=== PATIENT | female | born 1960 | race Caucasian/White ===

== ENCOUNTER 2019-06-01 19:06 | Inpatient (IN) | payer OTHER ==
--- NOTE | 2019-06-01 19:57 | EDM.PDOC ---
ED HPI GENERAL MEDICAL PROBLEM - General Chief Complaint: Abdominal Pain Stated Complaint: INTESTINAL BLOCKAGE Time Seen by Provider: 06/01/19 19:50 Source of Information: Reports: Patient History Limitations: Reports: No Limitations - History of Present Illness INITIAL COMMENTS - FREE TEXT/NARRATIVE: pt arrived with a iv in place. She was found to have a possible sbo. She was given 1 liter of fluid in [place]. She had a urine specfic gravity of .048. Pt had a cat scan that showed a possible sbo. Pt was able to come by [email or web address] car and she was able to remain comfortable. She states her nausea at this point is not a problem. She did receive reglan in [place] for her nausea. Onset: Other (started in the last 2 days and was much worse today. ) Duration: Hour(s): Location: Reports: Abdomen, Other (pt has had a rny. ) Associated Symptoms: Reports: Nausea/Vomiting - Related Data Allergies Allergy/AdvReac Type Severity Reaction Status Date / Time apixaban [From Eliquis] Allergy Hives Verified 06/01/19 19:17 erythromycin base Allergy Cannot Verified 06/01/19 19:17 Remember latex Allergy Cannot Verified 06/01/19 19:17 Remember meperidine Allergy Cannot Verified 06/01/19 19:17 Remember Penicillins Allergy Cannot Verified 06/01/19 19:17 Remember shellfish derived Allergy Cannot Verified 06/01/19 19:17 Remember Sulfa (Sulfonamide Allergy Cannot Verified 06/01/19 19:17 Antibiotics) Remember Home Meds: Home Meds Acetaminophen [Tylenol Extra Strength] 500 mg PO Q6HR PRN 06/08/15 [History] Aspirin [Halfprin] 81 mg PO DAILY 06/08/15 [History] Atenolol 50 mg PO DAILY 06/08/15 [History] Cholecalciferol (Vitamin D3) [Vitamin D] 1,000 units PO BID 06/08/15 [History] Levothyroxine [Synthroid] 200 mg PO DAILY 06/08/15 [History] Loratadine [Claritin] 10 mg PO DAILY 06/08/15 [History] Multivitamin [Multi-Vitamin Daily] 1 tab PO DAILY 06/08/15 [History] Ranitidine [Zantac] 150 mg PO BEDTIME 06/08/15 [History] Simvastatin 20 mg PO DAILY 06/08/15 [History] Vitamin E 100 units PO DAILY 06/08/15 [History] metFORMIN [Glucophage] 500 mg PO BIDMEALS 06/08/15 [History] Venlafaxine [Effexor] 1 tab PO TID 06/01/19 [History] buPROPion [Wellbutrin] 2 tab PO DAILY 06/01/19 [History] Past Medical History Cardiovascular History: Reports: High Cholesterol, Hypertension Respiratory History: Reports: Sleep Apnea Musculoskeletal History: Reports: Osteoarthritis Psychiatric History: Reports: Depression Endocrine/Metabolic History: Reports: Diabetes, Type II, Other (See Below) Other Endocrine/Metabolic History: Thyroid Diesase - Infectious Disease History Infectious Disease History: Reports: Chicken Pox, Mumps - Past Surgical History HEENT Surgical History: Reports: Oral Surgery Cardiovascular Surgical History: Reports: Valve Replacement Musculoskeletal Surgical History: Reports: Knee Replacement Social & Family History - Tobacco Use Smoking Status *Q: Never Smoker ED ROS GENERAL - Review of Systems Review Of Systems: See Below Constitutional: Reports: No Symptoms HEENT: Reports: No Symptoms Respiratory: Reports: No Symptoms Cardiovascular: Reports: No Symptoms Endocrine: Reports: No Symptoms GI/Abdominal: Reports: Nausea, Vomiting, Other (pt alos noted that her urine was very nubia in color. ) : Reports: Other ( she had a specfic gravity of .048) Musculoskeletal: Reports: No Symptoms Skin: Reports: No Symptoms Neurological: Reports: No Symptoms ED EXAM, GI/ABD - Physical Exam Exam: See Below Text/Narrative:: pt arrived transfered from [facility]. She was found to have a partial small bowel obstruction and she was very dehydrated. She is not nauseated or vomiting at this point. She is not having alot of pain. Exam Limited By: No Limitations General Appearance: Alert, Anxious, Mild Distress, Other (pupils are equal and reactive. ) Ears: Normal TMs Nose: Normal Inspection Throat/Mouth: Normal Inspection Head: Atraumatic Neck: Normal Inspection Respiratory/Chest: No Respiratory Distress Cardiovascular: Regular Rate, Rhythm GI/Abdominal Exam: Soft (Female) Exam: Other (mild midabdoman tenderness. ) Rectal (Female) Exam: Deferred Back Exam: Normal Inspection Extremities: Normal Inspection Neurological: Alert, Oriented, Normal Cognition Course - Vital Signs Last Recorded V/S: Last Vital Signs Temp 36.7 C 11/24/19 19:25 Pulse 87 06/01/19 19:25 Resp 14 06/01/19 19:25 BP 132/79 06/01/19 19:25 Pulse Ox 98 06/01/19 19:25 - Orders/Labs/Meds Orders: Active Orders 24 hr Category Date Time Status Sodium Chloride 0.9% [Normal Saline] 1,000 ml Med 06/01/19 20:00 Active IV ASDIRECTED Medication Orders Sodium Chloride (Normal Saline) 1,000 mls @ 999 mls/hr IV ASDIRECTED FARHAD Last Admin: 06/01/19 19:59 Dose: 999 mls/hr Meds: Medications Generic Name Dose Route Start Last Admin Trade Name Freq PRN Reason Stop Dose Admin Sodium Chloride 1,000 mls @ 999 mls/hr 06/01/19 20:00 06/01/19 19:59 Normal Saline IV 999 mls/hr ASDIRECTED FARHAD Administration - Re-Assessments/Exams Free Text/Narrative Re-Assessment/Exam: 06/01/19 20:21 iv fluids were restarted. She will receive a liter of normal saline and a liter of lactated ringers. She will also receive a banna bag. Departure - Departure Time of Disposition: 20:22 Disposition: Admitted As Inpatient 66 Condition: Fair Clinical Impression: Dehydration, Small bowel obstruction - Discharge Information Referrals: PCP,None [Primary Care Provider] - Forms: ED Department Discharge Care Plan Goals: admit to Dr Luz. - My Orders Last 24 Hours: My Active Orders 06/01/19 20:00 Sodium Chloride 0.9% [Normal Saline] 1,000 ml IV ASDIRECTED - Assessment/Plan Last 24 Hours: My Active Orders 06/01/19 20:00 Sodium Chloride 0.9% [Normal Saline] 1,000 ml IV ASDIRECTED
[2019-06-01] MEDS ORDERED: Sodium Chloride 0.9% 1,000 ML IV SCH (20:00)
[2019-06-01] MEDS ORDERED: Ondansetron 4 MG/2 ML SDV IV PRN (20:34)
[2019-06-01] MEDS ORDERED: Metoclopramide 10 MG/2 ML SDV IVPUSH PRN (20:40)
[2019-06-01] MEDS ORDERED: Lactated Ringers 1,000 ML IV SCH (21:30)
[2019-06-01] MEDS ORDERED: MVI, Adult with Vitamin K 10 ML, Thiamine 200 MG, Chromium/Copper/Mang/Selen/Zn 1 ML in... IV SCH ×4 (22:30)
[2019-06-02] MEDS ORDERED: Dextrose 5%-Lactated Ringers 1,000 ML IV SCH ×2 (02:15→17:45)
[2019-06-02] MEDS ORDERED: Lidocaine 0.4%/D5W 2 GM/500 ML BAG IV SCH ×2 (08:00→12:30)
[2019-06-02] MEDS ORDERED: Lidocaine 2% 100 MG/5 ML Syringe IVPUSH SCH ×2 (08:00→12:30)
[2019-06-02] MEDS ORDERED: Ketamine 500 MG/5 ML MDV IV SCH ×2 (08:00→12:30)
--- NOTE | 2019-06-02 10:12 | HP ---
HISTORY OF PRESENT ILLNESS: Sary presents to the emergency room by private car from [facility] Emergency Room. She was found to have partial small bowel obstruction. She had Richie-en-Y gastric bypass surgery in 2014. Followup has been very minimal. She states her pain started on 05/27/2019. She did go to Urgent Care and then the pain did increase, so went to ER in [facility], on 06/01/2019. She reports pain on the pain scale of 1 to 10 as a 1 to 2/10. She is resting, has been n.p.o., and receiving IV fluids. REVIEW OF SYSTEMS: Remainder of review of systems negative for any pertinent positives and negatives. PHYSICAL EXAMINATION: GENERAL: Sary Hernandez is a 59-year-old female. She is alert and orientated. Color pale. VITAL SIGNS: TPR is 96.2, 80, 116, blood pressure 118/55. HEENT: Negative. NECK: Supple. HEART: Regular rate and rhythm. LUNGS: Clear. ABDOMEN: Generalized tenderness with the greatest pain in the left upper quadrant. EXTREMITIES: Without peripheral edema. NEUROLOGIC: Intact. PSYCHIATRIC: Mood and affect appropriate. ASSESSMENT: Partial small bowel obstruction. PLAN: Schedule and have consent signed for exploratory laparotomy with release of small bowel obstruction and possible small bowel resection with TAP block, general anesthesia, ketamine loading dose and drip, lidocaine loading dose and drip. Case to follow on 06/02/2019, Carlos Luz MD. N.p.o. Check folate, magnesium, phosphate, thiamine, vitamin B12, and vitamin D prior to surgical procedure. Remain n.p.o. We will evaluate. Orders to be written postoperatively. Amee Feng PA-C /[id number]
[2019-06-02] MEDS ORDERED: fentaNYL 250 MCG/5 ML SDV ONE ×2 (10:48→16:04)
[2019-06-02] MEDS ORDERED: Ondansetron 4 MG/2 ML SDV ONE (10:48)
[2019-06-02] MEDS ORDERED: Succinylcholine 200 MG/10 ML MDV ONE (10:48)
[2019-06-02] MEDS ORDERED: Dexamethasone 4 MG/ML SDV ONE (10:48)
[2019-06-02] MEDS ORDERED: Rocuronium 50 MG/5 ML Vial ONE (10:48)
[2019-06-02] MEDS ORDERED: Neostigmine Methylsulfate 1 MG/ML 5 ML Syringe ONE (10:48)
[2019-06-02] MEDS ORDERED: Glycopyrrolate 0.2 MG/ML 5 ML MDV ONE (10:48)
[2019-06-02] MEDS ORDERED: Propofol 200 MG/20 ML SDV ONE (10:48)
[2019-06-02] MEDS ORDERED: Ropivacaine 50 ML, dexAMETHasone 8 MG, EPINEPHrine 0.4 MG, Sodium Chloride 0.9% 27.6 ML NERVRT SCH ×4 (12:30)
[2019-06-02] MEDS ORDERED: Ketamine 50 MG in Sodium Chloride 0.9% 49.5 ML IV SCH (12:30)
[2019-06-02] MEDS ORDERED: Bupivacaine 0.5% 50 ML MDV ONE (13:30)
[2019-06-02] MEDS ORDERED: Lidocaine 1% with EPINEPHrine 1:100,000 50 ML MDV ONE (13:30)
[2019-06-02] MEDS: Meropenem 500 MG in Sodium Chloride 0.9% 50 ML IV ONE ×2 (15:10→17:23)
[2019-06-02] MEDS ORDERED: Meropenem 500 MG SDV ONE (15:54)
[2019-06-02] MEDS ORDERED: Sugammadex Sodium 200 MG/2 ML VIAL ONE (16:03)
[2019-06-02] MEDS ORDERED: diphenhydrAMINE 50 MG/ML SDV IVPUSH PRN ×2 (17:49)
[2019-06-02] MEDS ORDERED: hydrOXYzine HCl 100 MG/2 ML SDV IM PRN (17:49)
[2019-06-02] MEDS ORDERED: Ondansetron 4 MG/2 ML SDV IVPUSH PRN (17:49)
[2019-06-02] MEDS ORDERED: Metoclopramide 10 MG/2 ML SDV IVPUSH PRN (17:49)
[2019-06-02] MEDS ORDERED: HYDROmorphone 1 MG/ML Syringe IV PRN (17:49)
[2019-06-02] MEDS ORDERED: HYDROmorphone 0.5 MG/0.5 ML Syringe IVPUSH PRN (17:49)
[2019-06-02] MEDS ORDERED: Labetalol 20 MG/4 ML Syringe IVPUSH PRN (17:49)
[2019-06-02] MEDS ORDERED: diphenhydrAMINE 25 MG Cap PO PRN (17:50)
[2019-06-02] MEDS ORDERED: Pantoprazole 40 MG Vial IVPUSH SCH (18:30)
[2019-06-02] MEDS ORDERED: MVI, Adult with Vitamin K 10 ML, Thiamine 200 MG, Chromium/Copper/Mang/Selen/Zn 1 ML in... IV SCH ×4 (18:30)
[2019-06-02] MEDS ORDERED: Meropenem 500 MG in Sodium Chloride 0.9% 50 ML IV SCH (21:00)
[2019-06-02] MEDS: Acetaminophen 325 MG Tab PO SCH (21:44)
[2019-06-02] MEDS: Heparin Sodium 5,000 Units/ML Vial SUBCUT SCH (21:44)
[2019-06-03] MEDS: Acetaminophen 325 MG Tab PO SCH ×4 (04:20→21:54)
[2019-06-03] MEDS ORDERED: Iopamidol 612 MG/ML 50 ML SDV PO ONE (05:54)
--- NOTE | 2019-06-03 06:03 | CRLCR ---
Indication: Small-bowel released. Recheck. Technique: Two views of the abdomen were obtained. Comparison: None Findings: Contrast is identified within the small bowel. The stomach appears to be extremely small. No extraluminal contrast is identified. Impression: No leak identified. Dictated by Devorah Fong MD @ Jun 03 2019 6:01AM Signed by Dr. Devorah Fong @ Jun 03 2019 6:02AM
[2019-06-03] MEDS: Heparin Sodium 5,000 Units/ML Vial SUBCUT SCH ×2 (08:22→21:54)
[2019-06-03] MEDS: SCOPOLAMINE PATCH CHECK TOP SCH (08:23)
[2019-06-03] MEDS ORDERED: HYDROmorphone 2 MG Tab PO PRN (08:37)
[2019-06-03] MEDS ORDERED: Ondansetron 4 MG Tab.DIS PO PRN (08:38)
[2019-06-03] MEDS ORDERED: Levothyroxine 50 MCG Tab PO SCH (09:00)
--- NOTE | 2019-06-03 10:13 | PN ---
DATE OF SERVICE: 06/03/2019 SUBJECTIVE: Sary is postoperative day 1. States her pain is controlled. Her Edge was removed earlier this morning. Temp max 99.3. She has no other questions or concerns. OBJECTIVE: GENERAL: Sary Hernandez is a 59-year-old female. She is alert and orientated. VITAL SIGNS: TPR 97.3, 73, 16. Blood pressure 139/80. HEENT: Negative. NECK: Supple. HEART: Regular rate and rhythm. LUNGS: Clear. ABDOMEN: Dressings dry and intact. Abdominal binder is on. EXTREMITIES: Without peripheral edema. ASSESSMENT: Exploratory laparotomy with lysis of adhesions. 1. Lysis of adhesions. 2. Placement of Interceed mesh. 3. Enterotomy for tube decompression of small bowel. Date of surgery, 06/02/2019. Surgeon, Carlos Luz MD. POSTOPERATIVE DIAGNOSES: Adhesions, small-bowel obstruction of marked distention of the Richie limb, and extensive intraabdominal adhesions. PLAN: 1. May shower. Step 2 with cereal gastric bypass diet. 2. Aspirin 81 mg p.o. daily, Tenormin 50 mg oral daily, bupropion 200 mg oral daily, decrease IV to 100 mL per hour, Dilaudid 2 to 4 mg every 4 hours p.r.n. pain, levothyroxine 175 mcg p.o. daily, Claritin 10 mg p.o. daily, metformin 500 mg p.o. b.i.d., Zofran ODT 4 mg every 4 hours p.r.n. pain, Zantac 150 mg at bedtime, Zocor 20 mg daily, and venlafaxine/Effexor 100 mg t.i.d. Good pulmonary toilet. 3. No straws. The patient is a bariatric patient. 4. We will evaluate p.r.n. or in a.m. 5. May increase to step 3 diet this evening. Amee Feng PA-C /[id number]
[2019-06-03] MEDS: Atenolol 50 MG Tab PO SCH (10:26)
[2019-06-03] MEDS: Loratadine 10 MG Tab PO SCH ×2 (10:26→10:34)
[2019-06-03] MEDS: Simvastatin 20 MG Tab PO SCH (10:27)
[2019-06-03] MEDS: Venlafaxine 100 MG Tab PO SCH ×3 (10:27→21:54)
[2019-06-03] MEDS: Aspirin 81 MG Tab.EC PO SCH (10:28)
[2019-06-03] MEDS: Pantoprazole 40 MG Tab.CR PO SCH (10:28)
[2019-06-03] MEDS: buPROPion 100 MG Tab PO SCH (10:29)
[2019-06-03] MEDS: Levothyroxine 100 MCG, Levothyroxine 50 MCG, Levothyroxine 25 MCG PO SCH ×3 (10:29)
[2019-06-03] MEDS: Dextrose 5%-Lactated Ringers 1,000 ML IV SCH ×2 (11:06→15:24)
[2019-06-03] MEDS ORDERED: Magnesium Sulfate/Water 2 GM in Premix Bag 1 BAG IV SCH (14:00)
[2019-06-03] MEDS ORDERED: MVI, Adult with Vitamin K 10 ML, Thiamine 200 MG, Chromium/Copper/Mang/Selen/Zn 1 ML in... IV SCH ×4 (16:00)
[2019-06-03] MEDS: metFORMIN 500 MG Tab PO SCH (16:15)
[2019-06-04] MEDS: Acetaminophen 325 MG Tab PO SCH ×2 (03:16→09:26)
[2019-06-04] MEDS: Levothyroxine 100 MCG, Levothyroxine 50 MCG, Levothyroxine 25 MCG PO SCH ×3 (07:28)
[2019-06-04] MEDS: Pantoprazole 40 MG Tab.CR PO SCH (07:28)
[2019-06-04 07:34] VITALS: BP 133/70; PULSE 64
[2019-06-04] MEDS ORDERED: Cyanocobalamin (Vitamin B12) 1,000 MCG/ML SDV IM ONE (09:00)
[2019-06-04] MEDS: Atenolol 50 MG Tab PO SCH (09:24)
[2019-06-04] MEDS: Venlafaxine 100 MG Tab PO SCH (09:25)
[2019-06-04] MEDS: Aspirin 81 MG Tab.EC PO SCH (09:26)
[2019-06-04] MEDS: metFORMIN 500 MG Tab PO SCH (09:26)
[2019-06-04] MEDS: Loratadine 10 MG Tab PO SCH (09:26)
[2019-06-04] MEDS: Simvastatin 20 MG Tab PO SCH (09:26)
[2019-06-04] MEDS: buPROPion 100 MG Tab PO SCH (09:26)
[2019-06-04] MEDS: SCOPOLAMINE PATCH CHECK TOP SCH (09:27)
[2019-06-04] MEDS: Heparin Sodium 5,000 Units/ML Vial SUBCUT SCH (09:27)
[2019-06-04] MEDS ORDERED: Magnesium Hydroxide 400 MG/5 ML Susp 30 ML Cup PO PRN (09:31)
--- NOTE | 2019-06-05 09:24 | DISCH ---
ADMISSION DIAGNOSES: 1. Partial small bowel obstruction, status post Richie-en-Y gastric bypass surgery. 2. Unspecified surgical malabsorption and B12 deficiency. 3. Hypertension. 4. Hypercholesterolemia. 5. Sleep apnea. 6. Osteoarthritis. 7. Depression. 8. Diabetes type 2. 9. Thyroid disease. DISCHARGE DIAGNOSES: Exploratory laparotomy and lysis of adhesions, placement of Interceed mesh, enterotomy for tube decompression of small bowel. Date of surgery, 06/02/2019. Surgeon, Carlos Luz M.D. HISTORY: Sary Hernandez is a 59-year-old female, who had a Richie-en-Y gastric bypass surgery around 2014. She has not had any bariatric surgery followup for 4-1/2 years. She presented to the emergency room with a partial small bowel obstruction, was transferred to [facility] and was admitted. She had her surgery on 06/02/2019. She had no operative complications. On postop day #1, she was started on a step-2 with cereal gastric bypass diet and started on her home medications. Her diet was advanced. On postop day #2, she was able to be discharged to home. Vital signs stable. She received dietary instructions. Oral intake adequate and pain was controlled. She was discharged to home on 06/04/2019. PHYSICAL EXAMINATION: GENERAL: Sary Hernandez is a pleasant 59-year-old female. VITAL SIGNS: TPR is 95.9, 64, 16. Blood pressure 133/70. HEENT: Negative. NECK: Supple. HEART: Regular rate and rhythm. LUNGS: Clear. ABDOMEN: Aquacel dressing was removed. Hermelindo intact. Incision looks good. Abdominal binder is on. EXTREMITIES: Without peripheral edema. DISPOSITION: Discharged to home. CONDITION: Stable and improving. FOLLOWUP: Followup appointment with Amee Feng PA-C, on 06/10/2019, at 10:00 a.m., at [place], [place]. HOME MEDICATIONS: 1. Tylenol 650 mg every 6 hours p.r.n. pain. 2. Aspirin 81 mg oral daily. 3. Atenolol 50 mg daily. 4. Vitamin D3, 1000 international units twice daily. 5. Levothyroxine 175 mcg daily. 6. Claritin 10 mg oral daily. 7. Multivitamin 1 tablet daily. 8. Zantac 150 oral at bedtime. 9. Simvastatin 20 mg oral daily. 10.Effexor 1 tablet 3 times a day. 11. oral daily. 12.Bupropion 2 tablets oral daily. 13.Metformin 500 mg oral twice daily. DISCHARGE INSTRUCTIONS: 1. Diet is step-3 gastric bypass diet. She is to drink 8 to 10 glasses a day. 2. Walk 6 times daily inside your home. 3. Driving: Do not drive for 1 week. 4. Shower/Bathing: May shower. 5. Notify provider if any fever, increased pain, nausea or vomiting. 6. Wear abdominal binder for 6 weeks and then as tolerated. 7. Use incentive spirometer 10 times every hour while awake for 1 week.
--- NOTE | 2019-06-06 13:22 | OR ---
DATE OF PROCEDURE: 06/02/2019 SURGEON: Carlos Luz MD PREOPERATIVE DIAGNOSIS: Small bowel obstruction. POSTOPERATIVE DIAGNOSES: 1. Adhesive small bowel obstruction with marked distention of Richie limb. 2. Extensive intraabdominal adhesions. OPERATIVE PROCEDURES: 1. Limited exploratory laparotomy with lysis of extensive adhesions: a. Lysis of specific adhesion causing small bowel obstruction (11570). b. Enterotomy for tube decompression of small bowel (13408). c. Placement of Interceed mesh to limit recurrent adhesion formation between pelvic and abdominal wall and underlying viscera (01416). ANESTHESIA: General. KEY OPERATOR: Amee Feng PA-C INDICATIONS FOR PROCEDURE: This is a 59-year-old status post Richie-en-Y gastric bypass, presenting with a picture of some small bowel obstruction. The patient will undergo a limited laparotomy with release of the obstruction and possible bowel resection. Potential risks, including bleeding and perforation, leaks from various GI tract closures, as well as possible recurrence of the problem over time were reviewed, along with the remote possibility of cardiopulmonary, septic, or hemorrhagic complications leading to were all gone over, and the patient wishes to proceed. DETAILS OF PROCEDURE: The patient was taken to the operating room and placed in supine position. After general endotracheal anesthesia was induced, a Edge catheter was inserted and the abdomen prepped and draped. A midline incision from the umbilicus roughly 4 fingerbreadths below the xiphoid was made and carried down through the full-thickness abdominal wall. Upon entering peritoneal cavity, a small amount of fluid, which was otherwise clear, was identified. Initial examination showed a fair bit of adhesions between the omentum, some small bowel loops, and the anterior abdominal wall. Eventually, these were taken down and the patient was noted to have what appeared to be more or less a closed loop obstruction between an area of adhesion with a roughly 15 cm segment of small bowel caught up in that. This adhesion was then divided, and after observing the bowel for a period of time, it appeared to have good blood supply and no persistent stricturing. This involved the Richie limb just proximal to the jejunojejunostomy. Remainder of the biliopancreatic limb and common limb, as well as Richie limb distal to the point of obstruction, were all decompressed and appeared to be unremarkable. At this point, a small enterotomy was made in the Richie limb and that fluid evacuated so as to decompress that region to minimize postoperative issues of aspiration. This was then closed off with a layered closure of 3-0 Vicryl stitch, full-thickness, followed by seromuscular 3-0 Vicryl stitch as well. The abdomen was then irrigated with antibiotic-containing saline solution. To limit recurrent adhesion formation, Interceed mesh was placed underneath the incision and from there down toward the pelvic area to displace those surfaces from the underlying viscera to limit recurrent adhesion formation. The midline fascia was then approximated with #2 Vicryl stitch, subcutaneous tissue with 2 layers of 3-0 and 4-0 Vicryl stitch deep, and bonita for the skin. The patient received bilateral transversus abdominis plane blocks, and incision was also anesthetized with 1% lidocaine mixed with Marcaine, and the patient was taken to the recovery room in satisfactory condition. Physician executive marketing assistant Amee Feng played an essential role in assisting in this case, helping to position the patient, retract structures as needed, as well as suturing and cutting sutures as needed and stapling as indicated. Her presence improved patient safety and decreased operative time. Carlos Luz MD Job #: [id number]
== END 2019-06-04 10:59 | disposition home or self-care (01) | DRG 336 ==
LOC: JP.ED 19:06 → JP.MS 20:32
PROVIDERS: ADMIT Surgery; ATTEND Surgery
PROC: 0DNW0ZZ Release Peritoneum, Open Approach (ICD-10-PCS; principal; 2019-06-02)
PROC: 0D9A8ZZ Drainage of Jejunum, Via Natural or Artificial Opening Endoscopic (ICD-10-PCS; 2019-06-02)
PROC: 3E0M05Z Introduction of Adhesion Barrier into Peritoneal Cavity, Open Approach (ICD-10-PCS; 2019-06-02)
DX: K56.51 Intestinal adhesions [bands], with partial obstruction (principal); K91.2 Postsurgical malabsorption, not elsewhere classified; I10 Essential (primary) hypertension; E53.8 Deficiency of other specified B group vitamins; E86.0 Dehydration; E78.00 Pure hypercholesterolemia, unspecified; G47.30 Sleep apnea, unspecified; M19.90 Unspecified osteoarthritis, unspecified site; F32.9 Major depressive disorder, single episode, unspecified; E11.9 Type 2 diabetes mellitus without complications; E07.9 Disorder of thyroid, unspecified; Z96.659 Presence of unspecified artificial knee joint; Z88.1 Allergy status to other antibiotic agents; Z91.040 Latex allergy status; Z88.0 Allergy status to penicillin; Z88.8 Allergy status to other drugs, medicaments and biological substances; Z88.2 Allergy status to sulfonamides; Z91.013 Allergy to seafood; Z79.82 Long term (current) use of aspirin; Z79.84 Long term (current) use of oral hypoglycemic drugs; Z79.890 Hormone replacement therapy; Z79.899 Other long term (current) drug therapy
CPT/HCPCS: 36415; 74240; 80048; 82306; 82607; 82746; 83735; 84100; 85027; 94762; 96360; 99284-25; A9270-GY; C9113; J0171; J0330; J1100; J1170; J1200; J1644; J2001; J2185; J2405; J2704; J2710; J2795; J3010; J3411; J3420; J3475; J3490; J7030; J7042; J7050; J7120; Q9967